=== PATIENT | female | born 1980 | race Caucasian/White ===

== ENCOUNTER 2017-01-11 15:16 | Inpatient (IN) ==
--- NOTE | 2017-01-11 15:30 | Emergency Department Note ---
Disposition Clinical Impression: Suicidal ideation, Depression, Acute anxiety Disposition: Admitted As Inpatient Referrals: NO,PCP [Non-Partnered Physician] - Forms: ED Satisfaction Letter General Adult HPI - General Chief complaint: ED Psychiatric Symptoms Stated complaint: SI Source: patient, EMS Limitations: no limitations - History of Present Illness HPI Narrative: 36-year-old female with history of anxiety and depression reports emergency department complaining of feeling anxious and depressed. She has been thinking about harming herself. The patient reports she used to take Lexapro and had thoughts of suicidality discontinued Lexapro about 2 weeks ago and now her thoughts of harming herself of become more prevalent. The patient denies any physical complaints. There is no history of self-injurious behavior or intentional drug overdose. The patient denies any chest pain shortness of breath abdominal pain vomiting diarrhea urinary symptoms back pain confusion or convulsion. There is no history of at this time. No trouble walking talking hearing seeing or speaking. The patient denies any fevers or any other acute complaint or concern. Pain Scale: 4 - Related Data Home Medications Medication Instructions Recorded Confirmed Ranitidine HCl [Zantac] 150 mg PO DAILY 01/10/17 01/10/17 Previous Rx's Medication Instructions Recorded Folic Acid 1 mg PO DAILY #30 tablet 01/11/17 Allergies Allergy/AdvReac Type Severity Reaction Status Date / Time No Known Allergies Allergy Verified 01/11/17 15:22 All systems ED: reviewed and negative except as stated. Past Medical History - Past Medical History Medical history: Reports: GERD, migraine, other Psychiatric history: Reports: depression - Social History Smoking Status: Current every day smoker Alcohol use: Reports: none Drug use: Reports: none Physical Exam - General Limitations: no limitations General appearance: alert, in no apparent distress - Head Head exam: atraumatic, normocephalic, normal inspection - Eye Eye exam: Present: normal appearance, PERRL, EOMI - ENT ENT exam: normal exam, normal oropharynx, mucous membranes moist, TM's normal bilaterally, normal external ear exam - Neck Neck exam: Present: normal inspection, full ROM, trachea midline. Absent: tenderness - Chest Chest inspection: Present: symmetric chest wall rise. Absent: tenderness - Respiratory Respiratory exam: Present: normal lung sounds bilaterally. Absent: respiratory distress, wheezes, stridor, accessory muscle use, prolonged expiratory phase - Cardiovascular Cardiovascular exam: Present: regular rate, normal rhythm, normal heart sounds - Abdominal Exam Abdominal exam: Present: soft, Non-Tender, normal bowel sounds. Absent: tenderness, distention, guarding, rebound, rigidity, pulsatile mass - Extremities Exam Extremities exam: Present: normal inspection, full ROM, normal capillary refill. Absent: tenderness, pedal edema, joint swelling, calf tenderness - Expanded Lower Extremity Exam Lower leg exam: Absent: Homans' sign Neurovascular/Tendon exam: Present: normal capillary refill. Absent: motor deficit, sensory deficit, tendon deficit, extremity cold to touch, pallor - Back Exam Back exam: Present: normal inspection, full ROM. Absent: tenderness, CVA tenderness (R), CVA tenderness (L), vertebral tenderness - Neurological Exam Neurological exam: Present: alert, oriented X3, CN II-XII intact. Absent: motor sensory deficit - Psychiatric Psychiatric exam: Present: normal affect, normal mood - Skin Skin exam: Present: warm, dry, intact, normal color. Absent: rash, cyanosis, diaphoresis, erythema, pallor, mottled Course - Reevaluation(s) Reevaluation #1: The patient reports she has had her thyroid checked several times and has not been diagnosed with any type of thyroid disease. Vital Signs Temperature 98.2 F 01/11/17 15:18 Pulse Rate 75 01/11/17 15:18 Respiratory Rate 16 01/11/17 15:18 Blood Pressure 135/74 01/11/17 15:18 O2 Sat by Pulse Oximetry 98 01/11/17 15:18 Temperature 98.2 F 01/11/17 15:18 Pulse Rate 75 01/11/17 15:18 Respiratory Rate 16 01/11/17 15:18 Blood Pressure 135/74 01/11/17 15:18 O2 Sat by Pulse Oximetry 98 01/11/17 15:18 Oxygen Delivery Oxygen Delivery Room Air Medical Decision Making - MDM Narrative Medical decision making narrative: The patient appears to be stable from a medical standpoint. Psychiatric services have been consulted to evaluate the patient's anxiety, depression, and suicidal ideation. *The counselors have evaluated the patient and will admit her to the psychiatric unit. - Lab Data Lab results reviewed: Yes I reviewed the patient's lab results. Result diagrams: 01/11/17 15:52 01/11/17 15:52 Lab Results 01/11/17 01/11/17 01/11/17 Range/Units 15:38 15:38 15:52 WBC 6.5 (4.3-11.1) K/mcL RBC 4.94 (3.82-4.97) M/mcL Hgb 12.3 (11.5-15.4) g/dL Hct 39.3 (35.3-44.9) % MCV 79.6 L (83.0-100.0) fL MCH 24.9 L (28.0-33.3) pg MCHC 31.3 L (31.6-35.5) g/dL RDW 15.9 H (11.5-14.5) % Plt Count 194 (140-400) K/mcL MPV 10.1 (9.4-12.4) fL Immature Gran % 0.2 (0-4) % Seg Neutrophils % 67.2 % Lymphocytes % 27.1 % Monocytes % 4.6 % Eosinophils % 0.6 % Basophils % 0.3 % Neutrophils # 4.4 (1.6-8.9) K/mcL Lymphocytes # 1.8 (0.6-4.6) K/mcL Monocytes # 0.3 (0.0-1.3) K/mcL Eosinophils # 0.0 (0.0-0.6) K/mcL Basophils # 0.0 (0.0-0.2) K/mcL Sodium (136-145) mEq/L Potassium (3.5-4.5) mEq/L Chloride (98-109) mEq/L Carbon Dioxide (19-29) mEq/L BUN (7-20) mg/dL Creatinine (0.57-1.11) mg/dL Est GFR ( Amer) (> 60) Est GFR (Non-Af Amer) (> 60) BUN/Creatinine Ratio (6-26) Glucose (70-99) mg/dL Calculated Osmolality (280-300) Calcium (8.6-10.8) mg/dL Total Bilirubin (0.2-1.2) mg/dL Direct Bilirubin (0.0-0.5) mg/dL Indirect Bilirubin (0.0-1.2) mg/dL AST (5-34) Units/L ALT (0-55) Units/L Alkaline Phosphatase (38-126) Units/L Serum Total Protein (6.0-8.3) g/dL Albumin (3.5-5.0) g/dL Globulin (2.4-3.5) g/dL Albumin/Globulin Ratio (1.1-2.2) Serum , Qual (Negative) Urine Color Yellow (Yellow) Urine Clarity Clear (Clear) Urine pH 7.0 (5.0-8.0) pH Units Ur Specific [place] 1.025 (1.010-1.025) Urine Protein Negative (Neg-Trace) mg/dL Urine Glucose (UA) Normal (Normal) mg/dL Urine Ketones Negative (Negative) mg/dL Urine Blood Negative (Negative) Urine Nitrite Negative (Negative) Urine Bilirubin Negative (Negative) Urine Urobilinogen Normal (Normal) mg/dL Ur Leukocyte Esterase Negative (Negative) Salicylates (15-30) mg/dL Urine Opiates Screen Negative (Aztgqr=368) ng/mL Acetaminophen (10-30) mcg/mL Ur Barbiturates Screen Negative (Simszc=464) ng/mL Ur Phencyclidine Scrn Negative (Cutoff=25) ng/mL Ur Amphetamines Screen Negative (Rgxszp=8059) ng/mL U Benzodiazepines Scrn Negative (Pdkdoa=710) ng/mL Urine Cocaine Screen Negative (Cutoff= 300) ng/mL U Marijuana (THC) Screen Negative (Cutoff = 50) ng/mL Ethyl Alcohol (0-10) mg/dL 01/11/17 01/11/17 01/11/17 Range/Units 15:52 15:52 15:52 WBC (4.3-11.1) K/mcL RBC (3.82-4.97) M/mcL Hgb (11.5-15.4) g/dL Hct (35.3-44.9) % MCV (83.0-100.0) fL MCH (28.0-33.3) pg MCHC (31.6-35.5) g/dL RDW (11.5-14.5) % Plt Count (140-400) K/mcL MPV (9.4-12.4) fL Immature Gran % (0-4) % Seg Neutrophils % % Lymphocytes % % Monocytes % % Eosinophils % % Basophils % % Neutrophils # (1.6-8.9) K/mcL Lymphocytes # (0.6-4.6) K/mcL Monocytes # (0.0-1.3) K/mcL Eosinophils # (0.0-0.6) K/mcL Basophils # (0.0-0.2) K/mcL Sodium 139 (136-145) mEq/L Potassium 4.2 (3.5-4.5) mEq/L Chloride 109 (98-109) mEq/L Carbon Dioxide 25 (19-29) mEq/L BUN 7 (7-20) mg/dL Creatinine 0.78 (0.57-1.11) mg/dL Est GFR ( Amer) > 60 (> 60) Est GFR (Non-Af Amer) > 60 (> 60) BUN/Creatinine Ratio 9 (6-26) Glucose 91 (70-99) mg/dL Calculated Osmolality 286 (280-300) Calcium 8.9 (8.6-10.8) mg/dL Total Bilirubin 0.4 (0.2-1.2) mg/dL Direct Bilirubin 0.1 (0.0-0.5) mg/dL Indirect Bilirubin 0.3 (0.0-1.2) mg/dL AST 11 (5-34) Units/L ALT 12 (0-55) Units/L Alkaline Phosphatase 45 (38-126) Units/L Serum Total Protein 6.8 (6.0-8.3) g/dL Albumin 3.6 (3.5-5.0) g/dL Globulin 3.2 (2.4-3.5) g/dL Albumin/Globulin Ratio 1.1 (1.1-2.2) Serum , Qual Negative (Negative) Urine Color (Yellow) Urine Clarity (Clear) Urine pH (5.0-8.0) pH Units Ur Specific [place] (1.010-1.025) Urine Protein (Neg-Trace) mg/dL Urine Glucose (UA) (Normal) mg/dL Urine Ketones (Negative) mg/dL Urine Blood (Negative) Urine Nitrite (Negative) Urine Bilirubin (Negative) Urine Urobilinogen (Normal) mg/dL Ur Leukocyte Esterase (Negative) Salicylates < 5.0 L (15-30) mg/dL Urine Opiates Screen (Sdteqn=583) ng/mL Acetaminophen < 1.0 L (10-30) mcg/mL Ur Barbiturates Screen (Dujmdx=737) ng/mL Ur Phencyclidine Scrn (Cutoff=25) ng/mL Ur Amphetamines Screen (Srtspf=0371) ng/mL U Benzodiazepines Scrn (Kltkuj=904) ng/mL Urine Cocaine Screen (Cutoff= 300) ng/mL U Marijuana (THC) Screen (Cutoff = 50) ng/mL Ethyl Alcohol < 10 (0-10) mg/dL
[2017-01-11 15:44] LABS: Bilirubin,Urine Negative (Negative); Blood,Urine Negative (Negative); Clarity,Urine Clear (Clear); Color,Urine Yellow (Yellow); Glucose,Urine (UA) Normal (Normal); Ketones,Urine Negative (Negative); Leukocyte Esterase,Urine Negative (Negative); Nitrite,Urine Negative (Negative); Protein,Urine Negative (Neg-Trace); Specific Gravity,Urine 1.025 (1.010-1.025); Urobilinogen,Urine Normal (Normal)
[2017-01-11 15:49] LABS: Amphetamine Screen,Urine Negative ng/mL (Cutoff=1000); Barbiturate Screen,Urine Negative ng/mL (Cutoff=200); Benzodiazepines Screen,Urine Negative ng/mL (Cutoff=200); Cannabinoid Screen,Urine Negative ng/mL (Cutoff = 50); Cocaine Screen,Urine Negative ng/mL (Cutoff= 300); Opiate Screen,Urine Negative ng/mL (Cutoff=300); Phencyclidine Screen,Urine Negative ng/mL (Cutoff=25)
[2017-01-11 15:57] LABS: Basophils % 0.3 %; Eosinophils % 0.6 %; Hematocrit 39.3 % (35.3-44.9); Hemoglobin 12.3 g/dL (11.5-15.4); Immature Granulocytes % 0.2 % (0-4); Lymphocytes # 1.8 K/mcL (0.6-4.6); Lymphocytes % 27.1 %; Mean Corpuscular HGB Conc 31.3 g/dL (31.6-35.5); Mean Corpuscular Hemoglobin 24.9 pg (28.0-33.3); Mean Corpuscular Volume 79.6 fL (83.0-100.0); Mean Platelet Volume 10.1 fL (9.4-12.4); Monocytes # 0.3 K/mcL (0.0-1.3); Monocytes % 4.6 %; Neutrophils # 4.4 K/mcL (1.6-8.9); Platelet Count 194 K/mcL (140-400); Red Blood Count 4.94 M/mcL (3.82-4.97); Red Cell Distribution Width 15.9 % (11.5-14.5); Segmented Neutrophils % 67.2 %
[2017-01-11 16:11] LABS: BUN/Creatinine Ratio 9 (6-26); Blood Urea Nitrogen 7 mg/dL (7-20); Calcium 8.9 mg/dL (8.6-10.8); Carbon Dioxide 25 mEq/L (19-29); Chloride 109 mEq/L (98-109); Glucose 91 mg/dL (70-99); Osmolality,Calculated 286 (280-300); Potassium 4.2 mEq/L (3.5-4.5); Sodium 139 mEq/L (136-145); eGFR For African Americans > 60 (> 60); eGFR For Non-African Americans > 60 (> 60)
[2017-01-11 16:13] LABS: Ethanol < 10 mg/dL (0-10)
[2017-01-11 16:14] LABS: Albumin 3.6 g/dL (3.5-5.0); Albumin/Globulin Ratio 1.1 (1.1-2.2); Bilirubin,Direct 0.1 mg/dL (0.0-0.5); Bilirubin,Indirect 0.3 mg/dL (0.0-1.2); Bilirubin,Total 0.4 mg/dL (0.2-1.2); Globulin 3.2 g/dL (2.4-3.5); Total Protein 6.8 g/dL (6.0-8.3)
[2017-01-11 17:02] LABS: Acetaminophen < 1.0 mcg/mL (10-30); Salicylate < 5.0 mg/dL (15-30)
[2017-01-11] MEDS ORDERED: *HR* LORazepam 1 MG TABLET PO PRN (18:14)
[2017-01-11] MEDS ORDERED: *HR* LORazepam 2 MG/ML VIAL IM PRN (18:14)
[2017-01-11] MEDS ORDERED: hydrOXYzine pamoate 25 MG CAPSULE PO PRN (18:14)
[2017-01-11] MEDS ORDERED: traZODone 50 MG TABLET PO PRN (18:14)
[2017-01-11] MEDS ORDERED: Acetaminophen 325 MG TABLET PO PRN (18:14)
[2017-01-11] MEDS ORDERED: MOM Conc 10 ML UD.LIQ PO PRN (18:14)
[2017-01-11] MEDS ORDERED: Haloperidol Lactate 5 MG/ML VIAL IM PRN (18:14)
[2017-01-11] MEDS ORDERED: Mag Hydrox/Al Hydrox/Simeth 30 ML UDC PO PRN (18:14)
[2017-01-11] MEDS: Famotidine 20 MG TABLET PO SCH (20:46)
[2017-01-12] MEDS: Famotidine 20 MG TABLET PO SCH ×2 (09:16→20:19)
--- NOTE | 2017-01-12 11:11 | Psychiatry History & Physical ---
Date of Encounter: 01/12/17 Time of Encounter: 10:00 History of Present Illness Patient Stated Chief Complaint: Suicidal ideation Medicare Admission Attestation: For traditional Medicare patients the provided hospital inpatient services are reasonable and necessary and in the case of services not specified as inpatient -only under 42 CFR 419.22 (n), that they are appropriately provided as inpatient services in accordance 42 CFR 412.3. For Critical Access Hospital the patient may reasonably be expected to be discharged or transferred to a hospital within 96 hours after admission to the Critical Access Hospital. Admitted From: Emergency Dept History of Present Illness: Ms. Warren is a 36 year old female admitted from the emergency department for suicidal ideation. 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 Patient reported suicidal ideation but no intent to self-harm, no previous suicide attempts. She was treated with Lexapro and did not tolerate it and stopped. She will consume large amounts of caffeine and smoke one and a half pack cigarettes a day and denied any use of alcohol or drugs. Past Med Surg Social Fam HX - Past Medical History Medical history: GERD, migraine, other - Past Psychiatric History Psychiatric history: Reports: no psych history - Past Surgical History Surgical History: non-contributory - Social History Smoking Status: Current every day smoker Smokeless Tobacco Status: No Alcohol use: none Drug use: none - Family History Mother Family Member Ethnicity: Non- Living Status: Still Living Hx Family Cardiac Disorders: No Hx Family Respiratory Disorders: No Hx Family Cancer: No Hx Family GI Disorders: No Hx Family Genitourinary Disorders: No Hx Family Endocrine Disorder: No Hx Family Musculoskeletal Disorders: No Hx Family Neuromuscular Disorders: No Hx Family Neurologic Disorders: No Hx Family HEENT Disorders: No Hx Family Autoimmune Disorders: No Hx Family Reproductive Disorders: No Hx Family Psychosocial Disorders: No Hx Family Medical Disorders: No Medications & Allergies Ranitidine HCl [Zantac] 150 mg PO BID 01/10/17 [History] Allergies No Known Allergies Allergy (Verified 01/11/17 15:22) Review of Systems Psychiatric: Reports: depression, anxiety, suicidal ideation Mental Status Exam Patient orientation: Yes Person, Yes Time, Yes Place Level of alertness: Alert Patient appearance: Appropriate, Well Groomed, Obese Behavior: calm, cooperative Psychomotor activity: Normal Eye contact: Maintains Eye Contact Mood description: Euthymic/stable Affect description: congruent with mood, full range Speech pattern: Normal rate, Normal rhythm, Normal tone Speech volume: Normal Thought process: Linear, Goal Oriented Thought content: Yes Suicidal ideation, No Homicidal ideation, No Overt delusions Perceptual disturbances: No Auditory hallucinations, No Visual hallucinations Attention span: Capable of Focused Attention Memory description: Grossly Intact Patient reliability: Reliable Historian Intelligence estimate: Average Judgment: Limited Insight: Partial Results - Vital Signs Vital signs: Temp Pulse Resp BP Pulse Ox 96.7 F L 69 16 118/73 98 01/12/17 08:28 01/12/17 08:28 01/12/17 08:28 01/12/17 08:28 01/11/17 15:18 - Labs Labs: Laboratory Last Values WBC 6.5 K/mcL (4.3-11.1) 01/11/17 15:52 RBC 4.94 M/mcL (3.82-4.97) 01/11/17 15:52 Hgb 12.3 g/dL (11.5-15.4) 01/11/17 15:52 Hct 39.3 % (35.3-44.9) 01/11/17 15:52 MCV 79.6 fL (83.0-100.0) L 01/11/17 15:52 MCH 24.9 pg (28.0-33.3) L 01/11/17 15:52 MCHC 31.3 g/dL (31.6-35.5) L 01/11/17 15:52 RDW 15.9 % (11.5-14.5) H 01/11/17 15:52 Plt Count 194 K/mcL (140-400) 01/11/17 15:52 MPV 10.1 fL (9.4-12.4) 01/11/17 15:52 Immature Gran % 0.2 % (0-4) 01/11/17 15:52 Seg Neutrophils % 67.2 % 01/11/17 15:52 Lymphocytes % 27.1 % 01/11/17 15:52 Monocytes % 4.6 % 01/11/17 15:52 Eosinophils % 0.6 % 01/11/17 15:52 Basophils % 0.3 % 01/11/17 15:52 Neutrophils # 4.4 K/mcL (1.6-8.9) 01/11/17 15:52 Lymphocytes # 1.8 K/mcL (0.6-4.6) 01/11/17 15:52 Monocytes # 0.3 K/mcL (0.0-1.3) 01/11/17 15:52 Eosinophils # 0.0 K/mcL (0.0-0.6) 01/11/17 15:52 Basophils # 0.0 K/mcL (0.0-0.2) 01/11/17 15:52 Sodium 139 mEq/L (136-145) 01/11/17 15:52 Potassium 4.2 mEq/L (3.5-4.5) 01/11/17 15:52 Chloride 109 mEq/L (98-109) 01/11/17 15:52 Carbon Dioxide 25 mEq/L (19-29) 01/11/17 15:52 BUN 7 mg/dL (7-20) 01/11/17 15:52 Creatinine 0.78 mg/dL (0.57-1.11) 01/11/17 15:52 Est GFR ( Amer) > 60 (> 60) 01/11/17 15:52 Est GFR (Non-Af Amer) > 60 (> 60) 01/11/17 15:52 BUN/Creatinine Ratio 9 (6-26) 01/11/17 15:52 Glucose 91 mg/dL (70-99) 01/11/17 15:52 Calculated Osmolality 286 (280-300) 01/11/17 15:52 Calcium 8.9 mg/dL (8.6-10.8) 01/11/17 15:52 Total Bilirubin 0.4 mg/dL (0.2-1.2) 01/11/17 15:52 Direct Bilirubin 0.1 mg/dL (0.0-0.5) 01/11/17 15:52 Indirect Bilirubin 0.3 mg/dL (0.0-1.2) 01/11/17 15:52 AST 11 Units/L (5-34) 01/11/17 15:52 ALT 12 Units/L (0-55) 01/11/17 15:52 Alkaline Phosphatase 45 Units/L (38-126) 01/11/17 15:52 Serum Total Protein 6.8 g/dL (6.0-8.3) 01/11/17 15:52 Albumin 3.6 g/dL (3.5-5.0) 01/11/17 15:52 Globulin 3.2 g/dL (2.4-3.5) 01/11/17 15:52 Albumin/Globulin Ratio 1.1 (1.1-2.2) 01/11/17 15:52 Serum , Qual Negative (Negative) 01/11/17 15:52 Urine Color Yellow (Yellow) 01/11/17 15:38 Urine Clarity Clear (Clear) 01/11/17 15:38 Urine pH 7.0 pH Units (5.0-8.0) 01/11/17 15:38 Ur Specific [place] 1.025 (1.010-1.025) 01/11/17 15:38 Urine Protein Negative mg/dL (Neg-Trace) 01/11/17 15:38 Urine Glucose (UA) Normal mg/dL (Normal) 01/11/17 15:38 Urine Ketones Negative mg/dL (Negative) 01/11/17 15:38 Urine Blood Negative (Negative) 01/11/17 15:38 Urine Nitrite Negative (Negative) 01/11/17 15:38 Urine Bilirubin Negative (Negative) 01/11/17 15:38 Urine Urobilinogen Normal mg/dL (Normal) 01/11/17 15:38 Ur Leukocyte Esterase Negative (Negative) 01/11/17 15:38 Salicylates < 5.0 mg/dL (15-30) L 01/11/17 15:52 Urine Opiates Screen Negative ng/mL (Zphfwa=739) 01/11/17 15:38 Acetaminophen < 1.0 mcg/mL (10-30) L 01/11/17 15:52 Ur Barbiturates Screen Negative ng/mL (Zcfsix=761) 01/11/17 15:38 Ur Phencyclidine Scrn Negative ng/mL (Cutoff=25) 01/11/17 15:38 Ur Amphetamines Screen Negative ng/mL (Orskwi=0392) 01/11/17 15:38 U Benzodiazepines Scrn Negative ng/mL (Fuxwov=723) 01/11/17 15:38 Urine Cocaine Screen Negative ng/mL (Cutoff= 300) 01/11/17 15:38 U Marijuana (THC) Screen Negative ng/mL (Cutoff = 50) 01/11/17 15:38 Ethyl Alcohol < 10 mg/dL (0-10) 01/11/17 15:52 Assessment and Plan (1) Depression Current visit: Yes Status: Acute Plan: Admit inpatient for safety and stabilization, Close observation, Suicide Precautions per unit protocol, Encourage participation in unit milieu, Group Therapy, Monitor sleep, Monitor appetite Additional Plan: 1. Patient was advised to reduce her smoking and caffeine by 50% as a first step 2. Patient will be started on Wellbutrin SR on the 50 mg daily Risks, benefits, side effects, alternatives discussed w/pt: Yes Patient agreeable to treatment: Yes Qualifiers: Depression Type: major depressive disorder Major depression recurrence: single episode Active/Remission status: currently active Major depression episode severity: severe Psychotic features: without psychotic features Qualified Code(s): F32.2 - Major depressive disorder, single episode, severe without psychotic features
[2017-01-12] MEDS: BuPROPion XL (24 HR) 150 MG TABLET PO SCH (12:33)
[2017-01-13] MEDS: Famotidine 20 MG TABLET PO SCH (08:40)
[2017-01-13] MEDS: BuPROPion XL (24 HR) 150 MG TABLET PO SCH (08:40)
[2017-01-13 09:15] VITALS: BP 106/65
--- NOTE | 2017-01-13 12:33 | Discharge Summary ---
Date of Encounter: 01/13/17 Time of Encounter: 12:00 Diagnosis - Discharge Diagnosis (1) Depression Status: Acute Qualifiers: Depression Type: major depressive disorder Major depression recurrence: single episode Active/Remission status: currently active Major depression episode severity: severe Psychotic features: without psychotic features Qualified Code(s): F32.2 - Major depressive disorder, single episode, severe without psychotic features Medications - Discharge Medications Prescriptions: BuPROPion XL (24 HR) [Wellbutrin Xl] 150 mg PO DAILY #30 tab.er.24h traZODone [TraZODone] 50 mg PO HS PRN #30 tablet PRN Reason: Insomnia Ranitidine HCl [Zantac] 150 mg PO BID 01/10/17 [History] BuPROPion XL (24 HR) [Wellbutrin Xl] 150 mg PO DAILY #30 tab.er.24h 01/13/17 [Rx ] traZODone [TraZODone] 50 mg PO HS PRN #30 tablet 01/13/17 [Rx] Allergies No Known Allergies Allergy (Verified 01/11/17 15:22) Provider Date of admission: 01/11/17 18:07 Primary care physician: PCP NO Discharging clinician: Nataly Nuno Assessment and Plan - Patient/Caregiver Discharge Instructions Activity: resume usual activities as tolerated Diet: regular diet - Follow up Plan Follow up with: [facility] [Outside] - 01/19/17 11:40 am (The above appointment is with Liliana Sevilla, primary care provider, for ongoing health and medication assessment and management.) [facility] [Outside] - 01/23/17 2:30 pm (The above appointment is with Lisa Pena, mental health counselor. Please arrive 15 minutes early to complete paperwork. Please bring your insurance card and photo ID. Your counselor will be able to refer you to see the psychiatric prescriber and a case liner as well if needed. If you are unable to keep this appointment, 24 hour business notice of cancellation is expected. This is the first available appointment. You may contact the office regularly to check for cancellations that may allow you to be seen sooner. ) Functional capacity at discharge: independent ambulation Overall status at discharge: Stable Disposition: Home, Self-Care Hospital Course Hospital course: Ms. Warren is a 36 year old female with history of depression and anxiety who was admitted to the hospital with depression and anxiety and suicidal ideation. She was admitted for psychiatric stabilization. She was incorporated into the therapeutic milieu and offer group and individual as well as recreational therapies. She was also psychoeducational materials and supportive therapy. She was placed on suicide precautions and close observation per unit protocol. Patient reports that she was feeling very stressed and overwhelmed because she did not feel like she was getting any support from her . She is the primary source of income for the household and also feels like her does not do anything around the house. She also has 4 kids and feels overwhelmed at times. She states that since she has been hospitalized she realizes that things are not as bad as she thought. She is feeling more hopeful and states that she would like to get in with a counselor when she leaves the hospital. She was started on Wellbutrin 150 mg by mouth daily. Patient is tolerating the medication well and denies side effects. She denies suicidal or homicidal ideation, intent, or plan. has been contacted and is willing to help her with medications and going to follow-up. Patient will follow-up at [facility] next month. Time spent discussing smoking cessation with patient: 3 to 10 minutes Does patient wish to continue nicotine replacement upon disc: Yes - Time Spent with Patient Total time spent providing and/or coordinating discharge services: Greater than 30 minutes Quality - Multiple Antipsychotics Patient discharged on 2 or more antipsychotic medications: No Procedures - Procedures Procedures: Medication Management, Crisis Stabilization, Supportive Therapy, Group Therapy, Psychoeducational Therapy Mental Status Exam - Mental Status Exam Patient orientation: Yes Person, Yes Time, Yes Place Level of alertness: Alert Patient appearance: Appropriate, Well Groomed Behavior: calm, cooperative Psychomotor activity: Normal Eye contact: Maintains Eye Contact Mood description: Euthymic/stable Affect description: congruent with mood, full range Speech pattern: Normal rate, Normal rhythm, Normal tone Speech Volume: Normal Thought process: Linear, Goal Oriented Thought Content: No Suicidal ideation, No Homicidal ideation, No Overt delusions Perceptual Disturbances: No Auditory hallucinations, No Visual hallucinations Judgment: Limited Insight: Minimal
== END 2017-01-13 13:17 | disposition home or self-care (01) ==
LOC: EMEROO 15:16 → 1ANU 18:07 → SUATTDRO 18:07 → 1ANU 18:15
PROVIDERS: ADMIT Psychiatry & Neurology Psychiatry; ATTEND Student in an Organized Health Care Education/Training Program